=== PATIENT | female | born 1965 | race Hispanic/Latino ===

== ENCOUNTER 2019-05-23 09:26 | Day surgery (SDC) | payer BC ==
[~2019-05-23] VITALS: Ht 154.9 cm; Wt 106.1 kg
[2019-05-23 10:14] VITALS: BP 136/77
[2019-05-23] MEDS ORDERED: SODIUM CHLORIDE 0.9% 1000ML 1,000 ML IV ONE (10:40)
[2019-05-23] MEDS ORDERED: PROPOFOL 10 MG/ML 20ML VIAL IV ONE (10:46)
[2019-05-23 11:12] VITALS: BP 101/47
[2019-05-23 11:17] VITALS: BP 108/47
[2019-05-23 11:22] VITALS: BP 107/64
[2019-05-23 11:27] VITALS: BP 112/64
--- NOTE | 2019-05-23 11:51 | NUR ---
UPDATE AWAITING RIDE.
== END 2019-05-23 12:05 | disposition home or self-care (01) ==
LOC: DAH 09:26 → ENDO 09:26
PROVIDERS: ATTEND Internal Medicine
DX: R14.0 Abdominal distension (gaseous) (principal); K63.5 Polyp of colon; K21.9 Gastro-esophageal reflux disease without esophagitis; E66.9 Obesity, unspecified; Z68.44 Body mass index [BMI] 60.0-69.9, adult; Z98.890 Other specified postprocedural states; Z80.0 Family history of malignant neoplasm of digestive organs; Z98.84 Bariatric surgery status; Z82.49 Family history of ischemic heart disease and other diseases of the circulatory system; Z83.3 Family history of diabetes mellitus; Z82.3 Family history of stroke; Z82.5 Family history of asthma and other chronic lower respiratory diseases
CPT/HCPCS: 45380; 45385; A4215; A4221; A4222; A4223; A4606; A4615; A4663; J2704; J7030